=== PATIENT | male | born 1995 | race Caucasian/White ===

== ENCOUNTER 2025-07-26 16:58 | Emergency (ER) | payer MEDICAID ==
[~2025-07-26] VITALS: Ht 172.7 cm; Wt 71.6 kg
[2025-07-26 17:02] VITALS: O2SAT 98
[2025-07-26 18:06] LABS: BASOPHILS % 0.3 % (0.0-2.0); EOSINOPHILS % 1.0 % (0.0-5.0); HEMATOCRIT. 42.8 % (42.0-52.0); HEMOGLOBIN. 14.3 g/dL (14.0-18.0); LYMPHOCYTES % 41.0 % (20.0-50.0); MEAN PLATELET VOLUME 8.7 fl (7.4-10.4); MONOCYTES % 6.0 % (2.0-8.0); NEUTROPHILS % 51.7 % (40.0-76.0); PLATELET 307 x1000/uL (130-400); RED BLOOD CELL COUNT 4.89 mill/uL (4.7-6.1); RED CELL DISTRIBUTION WIDTH 13.7 % (11.6-14.6)
[2025-07-26 18:16] LABS: INR 1.0
[2025-07-26 18:23] LABS: CREATININE 1.1 mg/dL (0.6-1.3); TROPONIN I HIGH SENSITIVITY < 4 ng/L (3.0-53)
[2025-07-26 18:24] LABS: UREA NITROGEN BLOOD 8 mg/dL (9-23)
[2025-07-26 18:25] LABS: ASPARTATE AMINOTRANSFERASE 18 IU/L (<34)
[2025-07-26 18:26] LABS: BILIRUBIN DIRECT 0.2 mg/dL (<=3.0); BILIRUBIN TOTAL 0.9 mg/dL (0.1-1.0); PROTEIN TOTAL 7.7 g/dL (6.0-8.3)
[2025-07-26] MEDS: SODIUM CHLORIDE 0.9% 1,000 ML IV ONE (19:01)
[2025-07-26] MEDS: DIPHENHYDRAMINE 50MG/ML VIAL IV ONE (19:01)
[2025-07-26] MEDS: PROCHLORPERAZINE 10MG/2ML VIAL IV ONE (19:13)
[2025-07-26 19:56] LABS: CLARITY URINE CLEAR (CLEAR); COLOR URINE YELLOW (YELLOW); GLUCOSE URINE NEGATIVE (NEGATIVE); KETONES URINE NEGATIVE (NEGATIVE); LEUKOCYTE ESTERASE URINE NEGATIVE (NEGATIVE); NITRITE URINE NEGATIVE (NEGATIVE); OCCULT BLOOD URINE NEGATIVE (NEGATIVE); PH URINE 6.5 (4.5-8.0); PROTEIN URINE NEGATIVE (NEGATIVE); SPECIFIC GRAVITY URINE 1.039 (1.005-1.030); UROBILINOGEN URINE 0.2 E.U./dL (0.2-1.0)
[2025-07-26 20:00] LABS: *AMPHETAMINES SCREEN URINE NEGATIVE (NEGATIVE); *BARBITURATES SCREEN URINE NEGATIVE (NEGATIVE); *BENZODIAZEPINES SCREEN URINE NEGATIVE (NEGATIVE); *COCAINE SCREEN URINE NEGATIVE (NEGATIVE); CANNABINOID URINE SCREEN NEGATIVE (NEGATIVE); ECSTASY MDMA SCREEN URINE NEGATIVE (NEGATIVE); METHADONE URINE SCREEN NEGATIVE (NEGATIVE); OPIATES URINE SCREEN NEGATIVE (NEGATIVE); PHENCYCLIDINE URINE SCREEN NEGATIVE (NEGATIVE)
[2025-07-26 21:47] LABS: TROPONIN I HIGH SENSITIVITY < 4 ng/L (3.0-53)
[2025-07-26 21:57] VITALS: BP 95/58; PULSE 60; RESP 12; TEMP 36.9; O2SAT 100
[2025-07-26] MEDS ORDERED: IOHEXOL-350 100 ML BOTTLE ONE (23:47)
== END 2025-07-26 22:03 | disposition home or self-care (01) ==
LOC: ER 17:29 → CMPBEDREQ 07-28 07:59
DX: G43.909 Migraine, unspecified, not intractable, without status migrainosus (principal); R06.02 Shortness of breath; F17.200 Nicotine dependence, unspecified, uncomplicated
CPT/HCPCS: 80076; 80305; 80048; 81003; 80320; 82962; 85025; 85610; 85730; 84484; 36415; 71045; 70496; 70498; 70450; 93005; 96361; 96374; 96375; 99291; Q9967; J1200; J0780; J7030; 99285; G0480